=== PATIENT | male | born 1955 | race Two or more races ===

== ENCOUNTER 2016-05-15 09:54 | Emergency (ER) | payer MEDICAID ==
[~2016-05-15] VITALS: Ht 167.6 cm; Wt 73.5 kg
[2016-05-15 10:04] VITALS: BP 116/79
--- NOTE | 2016-05-15 10:07 | NUR ---
Patient to bed 03.
--- NOTE | 2016-05-15 10:09 | NUR ---
PT PRESENTS TO ER W/C/O RIGHT KNEE PAIN X2 WEEKS. PT STATES A BRICK FELL ON HIS KNEE AND HE'S HAD PAIN SINCE THAT TIME. RT KNEE IS SLIGHTLY SWOLLEN;PT TOOK PAIN PILLS BUT CAN'T REMEMBER THE NAME OF MEDICATION; HX HTN,HYPERLIPIDEMIA,GOUT.DENIESCP/SOB/COUGH/FEVER/N/V/D. PT IS AAOX4 ;NO NACUTE DISTRESS NOTED AT THIS TIME;HOB ELEVATED;SAFETY PRECAUTION INSTITUTED;NEEDS ATTENDED; MADE AWARE OF PT'S CONDITION.
--- NOTE | 2016-05-15 10:25 | NUR ---
Dr. Medrano evaluating patient at bedside.
[2016-05-15] MEDS ORDERED: IBUPROFEN 600 MG TAB PO ONE (10:30)
[2016-05-15] MEDS ORDERED: HYDROcodone/APAP 5/325 MG 1 TAB TAB PO ONE (10:30)
--- NOTE | 2016-05-15 10:33 | NUR ---
XRAY AT BEDSIDE.
--- NOTE | 2016-05-15 10:38 | NUR ---
PT LYING ON BED COMFORTABLY;DAUGHTER AT BEDSIDE;NO ACUTE DISTRESS NOTED AT THIS TIME;WILL CONTINUE TO MONITOR PT.
--- NOTE | 2016-05-15 11:09 | NUR ---
Patient discharged with v/s stable. Written and verbal after care instructions given and explained.Patient alert, oriented and verbalized understanding of instructions. Ambulatory with steady gait. All questions addressed prior to discharge. ID band removed. Patient advised to follow up with PMD. Rx of INDOMETHACIN AND NORCO given. Patient educated on indication of medication including possible reaction and side effects. Opportunity to ask questions provided and answered. ADVISED PT TO REFRAIN FROM STRENOUS ACTIVITIES AND PT AGREED W/ IT.
[2016-05-15 11:10] VITALS: BP 137/78
== END 2016-05-15 11:09 | disposition home or self-care (01) ==
LOC: MED 09:54
DX: M10.061 Idiopathic gout, right knee (principal); I10 Essential (primary) hypertension; E78.5 Hyperlipidemia, unspecified
CPT/HCPCS: 29505; 73562; 99284; Q0092